=== PATIENT | female | born 2000 | race Caucasian/White ===

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

== ENCOUNTER → 2020-05-12 | Outpatient (CLI) | payer BC ==
[~2020-05-12] MED LIST: FAMO-63 PO; ONDA4TAB10 SL; RANI300T3 PO
--- NOTE | 2020-05-12 09:55 | RAD ---
US ABDOMEN COMPLETE Realtime grayscale images of the abdomen with color and pulsed doppler utilized as appropriate. History: Reason: EPIGASTRIC ABD PAIN / Spl. Instructions: / History: Comparison: 06/30/2016. Findings: The liver is normal in appearance and echogenicity. No intrahepatic biliary ductal dilatation or mas s is seen. No gallstones, pericholecystic fluid, or gallbladder wall thickening are seen. The commo n bile duct is normal in diameter and measures 0.3 cm. Portal Vein flow is hepatopetal. The pancreas is normal in appearance, although the tail is not well visualized. The aorta and IVC are normal diameter where visualized. The right kidney is normal in appearance, measuring 10.4 cm in length. The left kidney is normal in a ppearance, measuring 11.0 cm in length. No hydronephrosis or perinephric fluid are seen bilaterally. The spleen is normal in appearance and measures 10.8 cm. Impression: Unremarkable ultrasound examination of the abdomen. Electronically signed by: Dixon Hernández MD (05/12/2020 9:53 AM) [id number]
== END ==
LOC: US 09:27
PROVIDERS: ATTEND Family Medicine
DX: R10.13 Epigastric pain (principal)
CPT/HCPCS: 76700